=== PATIENT | female | born 1945 | race Asian ===

== ENCOUNTER 2020-09-20 06:04 | Emergency (ER) | payer OTHER ==
[~2020-09-20] VITALS: Ht 160 cm; Wt 62.6 kg
[2020-09-20 06:26] VITALS: Ht 160 cm; Wt 62.6 kg
[2020-09-20 06:58] VITALS: BP 143/74
[2020-09-20 07:19] LABS: UA SPECIFIC GRAVITY 1.015 (1.005-1.035); microscopic required? YES; urine erythrocyte 3+ (NEGATIVE)
== END 2020-09-20 06:58 | disposition home or self-care (01) ==
LOC: ED 06:04 → EDSEX 06:04 → ED 06:58
PROVIDERS: Emergency Medicine
DX: N39.0 Urinary tract infection, site not specified (principal); R03.0 Elevated blood-pressure reading, without diagnosis of hypertension; J45.909 Unspecified asthma, uncomplicated; Z88.1 Allergy status to other antibiotic agents